=== PATIENT | male | born 1965 | race Caucasian/White ===

== ENCOUNTER 2016-12-02 20:29 | Emergency (ER) | payer OTHER ==
--- NOTE | 2016-12-02 20:26 | EDPHY ---
H & P HPI/ROS: CHIEF COMPLAINT: Full trauma activation, two-story fall. HISTORY OF PRESENT ILLNESS: The patient is a 52-year-old male who presents via EMS after a two-story fall earlier today. Per EMS he lost consciousness for an unknown amount of time. He was found 2-3 hours after falling. He has significant pain in his pelvis and left hip. Paramedics noted crepitus and diminished breath sounds on the left hemithorax. Initial blood pressure in the field was 60 systolic.He is on 15L oxygen on arrival. He is alert and oriented x4. He takes a daily aspirin but is not otherwise anticoagulated. No fever, chills, palpitations, vomiting, diarrhea, urinary complaints, lightheadedness. EMS administered 1.5L IV saline en route; following fluids bp was 80/60. REVIEW OF SYSTEMS: See HPI. Patient reports feeling otherwise well prior to the event. Last meal was several hours ago. PAST MEDICAL HISTORY: ADHD. SOCIAL HISTORY: Nonsmoker, no alcohol use. VITAL SIGNS: Reviewed by me; see NN. GENERAL: Well-developed, well-nourished, complaining of severe chest pain and hip pain. Prefers to sit upright. Reports significant pain in his pelvis when lying flat. HEENT: Abrasion to left zygoma and left ear. PERRL, EOMI, no nystagmus. Oropharynx: No trauma, normal occlusion. Neck: Nontender to palpation, no pain with range of motion, no adenopathy. C-collar in place. CHEST: Subcutaneous emphysema across left hemithorax. Swelling is visible numb the left chest wall. Tenderness to palpitation. Diminished breath sounds. Crackles to left chest, subcutaneous air, swelling to left chest. LUNGS: Diminished breath sounds on left. CARDIAC: Regular tachycardia, no rubs, murmurs or gallops. ABDOMEN: Soft, no significant tenderness. BACK: No CVA tenderness, no spinal tenderness. Abrasions to left flank. EXTREMITIES: Left hip pain with movement. Severe pain with movement of legs. Pelvis stable to pressure. Upper and lower extremities largely atraumatic. PULSES: 2+ and equal throughout. NEURO: Alert and oriented x3, cranial nerves are intact throughout, normal motor , normal sensation. SKIN: Warm and dry, no rash. Portions of this note were transcribed by a medical supply technician. I personally performed a history, physical exam, medical decision making, and confirmed accuracy of information the transcribed note. Source: Patient, EMS Exam Limitations: No limitations Constitutional: Initial Vital Signs Temperature (C) 35.7 C L 12/02/16 21:50 Heart Rate 118 H 12/02/16 21:50 Respiratory Rate 16 12/02/16 21:50 Blood Pressure 113/74 12/02/16 21:50 O2 Sat (%) 99 12/02/16 21:50 O2 Delivery Mode Non-Rebreather Mask O2 (L/minute) 15 Allergies/Adverse Reactions: No Known Allergies Allergy (Unverified 02/13/14 11:16) Home Medications: Medication Instructions Recorded Glucosamine 12/02/16 Medical Decision Making - Diagnostics Imaging Results: Imaging Impressions Chest X-Ray 12/02/16 20:36 Impression: Multiple displaced left rib fractures, pneumothorax, subcutaneous emphysema. CT evaluation is pending. Head CT 12/02/16 20:39 Impression: Negative noncontrast CT of the head, with no intracranial posttraumatic sequela identified. CT Cervical Spine, Without Contrast History: Trauma. Technique: Multislice helical CT through the cervical spine, without contrast, from the skull base to T1. Soft tissue and bone evaluation is performed. Sagittal and coronal reconstructions are obtained and reviewed. Dose reduction techniques were utilized. Findings: Cervical alignment is anatomic. No fracture or dislocation is identified. The relationship between skull base and C1 is normal. The C1-C2 articulation is normal. The odontoid process is normal. Disk degenerative changes are noted at C4-C5 and at C5-C6. The cervical thoracic junction is normal. Soft tissue window evaluation does not show evidence of epidural or prevertebral hematoma. There is extensive soft tissue air in the prevertebral space and in the left neck more than right and this is related to multiple left rib fractures. Impression: 1. Negative for fracture. 2. Extensive soft tissue air. 3. See above report for additional findings. Results called and discussed with Chelo Escalera M.D., on December 02, 2016 [address]. Cervical Spine CT 12/02/16 20:40 Impression: Negative noncontrast CT of the head, with no intracranial posttraumatic sequela identified. CT Cervical Spine, Without Contrast History: Trauma. Technique: Multislice helical CT through the cervical spine, without contrast, from the skull base to T1. Soft tissue and bone evaluation is performed. Sagittal and coronal reconstructions are obtained and reviewed. Dose reduction techniques were utilized. Findings: Cervical alignment is anatomic. No fracture or dislocation is identified. The relationship between skull base and C1 is normal. The C1-C2 articulation is normal. The odontoid process is normal. Disk degenerative changes are noted at C4-C5 and at C5-C6. The cervical thoracic junction is normal. Soft tissue window evaluation does not show evidence of epidural or prevertebral hematoma. There is extensive soft tissue air in the prevertebral space and in the left neck more than right and this is related to multiple left rib fractures. Impression: 1. Negative for fracture. 2. Extensive soft tissue air. 3. See above report for additional findings. Results called and discussed with Chelo Escalera M.D., on December 02, [address] Thoracic Spine CT 12/02/16 20:40 Impression: 1. Multiple left rib fractures, with associated pneumothorax, extensive subcutaneous emphysema, and possible pulmonary contusion. 2. See above report for additional findings. CT Thoracic Spine, Without Contrast Reason for examination: Trauma. Technique: A thinly collimated spiral acquisition was performed through the thoracic spine at 1.25-mm thickness. Sagittal and coronal reformations are performed and the examination is reviewed by the radiologist on the workstation at multiple window/level settings. Dose reduction techniques were utilized. Findings: The bone alignment is normal. An acute fracture is not seen. The paravertebral soft tissues are normal. Mild thoracic spinal degenerative changes are seen. Impression: Negative for fracture. Results called and discussed with Chelo Escalera M.D., on December 02, 2016 at 2134. E:JUMANA/kristel Lumbar Spine CT 12/02/16 20:41 Impression: 1. Grade 2 splenic laceration. 2. Complex displaced left-sided pelvic fractures, as detailed above. 3. Associated hematoma with the fractures results in mass effect, with displacement of the bladder towards the right. No definite bladder injury is identified. CT Lumbar Spine History: Trauma Technique: A spiral acquisition was performed through the lumbar spine from T12 to S1. Soft tissue and bone window evaluation is performed. Sagittal and coronal reconstructions are obtained utilizing soft tissue and bone window computer analysis modes. Dose reduction techniques were utilized. Findings: Vertebral body heights are well maintained. There is no acute fracture. The paravertebral soft tissues are negative for hemorrhage. Impression: Lumbar spine negative for acute fracture. Results called and discussed with Chelo Escalera M.D., on December 02, 2016 at 2202. E:PK/am Chest CT 12/02/16 20:42 Impression: 1. Multiple left rib fractures, with associated pneumothorax, extensive subcutaneous emphysema, and possible pulmonary contusion. 2. See above report for additional findings. CT Thoracic Spine, Without Contrast Reason for examination: Trauma. Technique: A thinly collimated spiral acquisition was performed through the thoracic spine at 1.25-mm thickness. Sagittal and coronal reformations are performed and the examination is reviewed by the radiologist on the workstation at multiple window/level settings. Dose reduction techniques were utilized. Findings: The bone alignment is normal. An acute fracture is not seen. The paravertebral soft tissues are normal. Mild thoracic spinal degenerative changes are seen. Impression: Negative for fracture. Results called and discussed with Chelo Escalera M.D., on December 02, 2016 at 2134. E:PK/taurus Abdomen CT 12/02/16 20:43 Impression: 1. Grade 2 splenic laceration. 2. Complex displaced left-sided pelvic fractures, as detailed above. 3. Associated hematoma with the fractures results in mass effect, with displacement of the bladder towards the right. No definite bladder injury is identified. CT Lumbar Spine History: Trauma Technique: A spiral acquisition was performed through the lumbar spine from T12 to S1. Soft tissue and bone window evaluation is performed. Sagittal and coronal reconstructions are obtained utilizing soft tissue and bone window computer analysis modes. Dose reduction techniques were utilized. Findings: Vertebral body heights are well maintained. There is no acute fracture. The paravertebral soft tissues are negative for hemorrhage. Impression: Lumbar spine negative for acute fracture. Results called and discussed with Chelo Escalera M.D., on December 02, 2016 at 2202. E:JUMANA/kristel Chest X-Ray 12/02/16 21:33 Impression: Partial reexpansion of the left lung following placement of a large bore thoracotomy tube. Imaging: Discussed imaging studies w/ scallop raker Radiologist, I viewed and interpreted images myself Procedures: Procedure: FAST Trauma ultrasound. Limited transthoracic ultrasound was performed and interpreted by myself for the indication of: chest and pelvic trauma utilizing the thoracoabdominal emergency ultrasound protocol. The pericardium was unable to be visualized from a sub xiphoid view secondary to patient guarding and positioning Limited abdominal ultrasound for blunt trauma. Right upper quadrant visualized, no fluid in Morison's pouch. Left upper quadrant visualized, no fluid in the splenorenal abscess. Images were saved to the ultrasound database. The procedure was performed by myself. ED Course/Re-evaluation: 52-year-old male presents via EMS as a full trauma activation after a two-story fall. I met EMS on arrival and obtained a report from the eligibility specialist. Dr. Guerrero , trauma surgery, at bedside along with respiratory therapy and blood bank. Blood pressure 80/60 manual on arrival. 2033: T-pod placed. Portable chest x-ray ordered. I performed a bedside trauma ultrasound (see procedure note for details). 75mcg IV Fentanyl and 4mg IV Zofran administered for pain and nausea. 2036: Portable chest x-ray taken. Patient transferred to CT for head, neck, abdomen, and pelvis imaging. X-ray of the chest was obtained. I viewed the images myself on the PACS system. My interpretation of the images is: left-sided pneumothorax, small left -sided hemothorax, pneumomediastinum, pulmonary contusions, multiple left rib fractures. The radiologist interpretation is pending at this time. I discussed the x-ray findings with the patient. 2101: Reassessed patient. is now at bedside. Discussed early results of imaging studies. I reviewed the patient's laboratory studies. Hgb 8.7, Hct 24.9. One unit of blood ordered for mass transfusion protocol. 2105: Consulted with Dr. Reeder, orthopedics. He will view the patient's images on the PACS system. Dr. Guerrero is performing a chest tube thoracotomy. 2107: I consulted with Dr. Tran, radiology. He reports left acetabular fracture and comminuted left iliac fracture with mass effect on the bladder. 2119: Dr. Reeder is in the ER evaluating the patient's images. He recommends transfer to [facility] for operative intervention patient's complex pelvic fracture. 2124: I spoke with [facility] concerning transfer. Patient accepted by Dr. Sony Oliveira. Patient's course also was discussed with Dr. Andrea Miramontes, emergency department attending. Patient was transferred via helicopter to [facility]. Patient does have [place] [facility]. I spoke with [facility] case management to notify them of the patient's admission and transfer to [facility]. At the time of transfer, [facility] [place] [facility] was in the emergency department and on standby for an emergent transfer. I do not believe that the patient was stable to await ground transport, or other air support services given the fact that [facility] was currently in the emergency department and ready to transfer the patient to [facility]. 2 units of packed red blood cells were infusing at the time of transport as well as FFP. Differential Diagnosis: Differential diagnosis of this patient's traumatic mechanism was considered including but not limited to intracranial injury, long bone and pelvic bone fracture, spinal injury, intrathoracic injury, extremity injury, intra- abdominal injury, lacerations, abrasions, and contusions. Consult/Admit Bed Type: Transfer to [facility], Dr. Sony Oliveira Critical Care Time: Critical care time spent by Dr. Lali he exclusively with this patient was 35 minutes, exclusive of PA time and exclusive of procedures. The organ system at risk was pulmonary, orthopedic, with significant risk of hemorrhage and I gave IV fluids, blood, transported the patient emergently to level 1 trauma center for orthopedic management pelvic fracture with significant hemorrhage to prevent worsening of the patients condition. Critical care time included obtaining history, performing a physical exam, bedside monitoring of interventions, collecting and interpreting tests and discussion with consultants but not including time spent performing procedures. - Data Points Laboratory Results: Laboratory Results 12/02/16 20:40 12/02/16 20:40 12/02/16 12/02/16 12/02/16 21:23 21:23 21:11 WBC RBC Hgb POC Hgb 9.5 gm/dL L gm/dL (13.7-17.5) Hct POC Hct 28 % L % (40-51) MCV MCH MCHC RDW Plt Count MPV Neut % (Auto) Lymph % (Auto) [place] % (Auto) Eos % (Auto) Baso % (Auto) Nucleat RBC Rel Count Absolute Neuts (auto) Absolute Lymphs (auto) Absolute Monos (auto) Absolute Eos (auto) Absolute Basos (auto) Absolute Nucleated RBC Immature Gran % Immature Gran # PT INR APTT TEG Specimen Type Citrated Kaolin TEG Sample Type Other TEG R Time 4.2 minutes L minutes (5-10) TEG K Time 1.3 minutes minutes (1-3) TEG Alpha Angle 71.8 degrees degrees (53-72) TEG Max Amplitude 62.8 mm mm (50-70) Puncture Site Pending pCO2 Pending pO2 Pending Total CO2 Pending ABG pH Pending ABG HCO3 Pending ABG O2 Saturation Pending ABG Base Excess Pending POC Sodium 140 mEq/L mEq/L (134-144) Sodium POC Potassium 3.6 mEq/L mEq/L (3.3-5.0) Potassium POC Chloride 106 mEq/L mEq/L (97-110) Chloride Carbon Dioxide Anion Gap POC BUN 24 mg/dL H mg/dL (7-23) BUN Creatinine POC Creatinine 1.3 mg/dL mg/dL (0.7-1.3) Estimated GFR Glucose POC Glucose 163 mg/dL H mg/dL (70-100) Calcium Phosphorus Magnesium Total Bilirubin AST Lactate Dehydrogenase Creatine Kinase CK-MB (CK-2) Fraction CK-MB (CK-2) % Creatine Kinase Interp Albumin Ethyl Alcohol Patient ABO/Rh Antibody Screen Crossmatch IS Only 12/02/16 12/02/16 12/02/16 20:40 20:40 20:40 WBC RBC Hgb POC Hgb Hct POC Hct MCV MCH MCHC RDW Plt Count MPV Neut % (Auto) Lymph % (Auto) [place] % (Auto) Eos % (Auto) Baso % (Auto) Nucleat RBC Rel Count Absolute Neuts (auto) Absolute Lymphs (auto) Absolute Monos (auto) Absolute Eos (auto) Absolute Basos (auto) Absolute Nucleated RBC Immature Gran % Immature Gran # PT 17.2 SEC H SEC (12.0-15.0) INR 1.41 H (0.83-1.16) APTT 28.1 SEC SEC (23.0-38.0) TEG Specimen Type TEG Sample Type TEG R Time TEG K Time TEG Alpha Angle TEG Max Amplitude Puncture Site pCO2 pO2 Total CO2 ABG pH ABG HCO3 ABG O2 Saturation ABG Base Excess POC Sodium Sodium 138 mEq/L mEq/L (134-144) POC Potassium Potassium 3.9 mEq/L mEq/L (3.5-5.2) POC Chloride Chloride 112 mEq/L H mEq/L (97-110) Carbon Dioxide 17 mEq/l L mEq/l (22-31) Anion Gap 9 mEq/L mEq/L (8-16) POC BUN BUN 23 mg/dL mg/dL (7-23) Creatinine 1.3 mg/dL mg/dL (0.7-1.3) POC Creatinine Estimated GFR 58 Glucose 229 mg/dL H mg/dL (70-100) POC Glucose Calcium 7.6 mg/dL L mg/dL (8.5-10.4) Phosphorus 5.1 mg/dL H mg/dL (2.5-4.5) Magnesium 1.9 mg/dL mg/dL (1.6-2.3) Total Bilirubin 0.9 mg/dL mg/dL (0.1-1.4) AST 85 IU/L H IU/L (17-59) Lactate Dehydrogenase 1016 IU/L H IU/L (313-618) Creatine Kinase 1544 IU/L H IU/L (0-224) CK-MB (CK-2) Fraction 26.60 ng/mL H ng/mL (0-3.19) CK-MB (CK-2) % 1.7 % % (0.0-4.0) Creatine Kinase Interp NEGATIVE (NEGATIVE) Albumin 2.9 g/dL L g/dL (3.5-5.0) Ethyl Alcohol < 10 mg/dL mg/dL (0-10) Patient ABO/Rh O POSITIVE Antibody Screen NEGATIVE Crossmatch IS Only See Detail 12/02/16 12/02/16 20:40 20:33 WBC 13.56 10^3/uL H 10^3/uL (3.80-9.50) RBC 2.52 10^6/uL L 10^6/uL (4.40-6.38) Hgb 8.7 g/dL L g/dL (13.7-17.5) POC Hgb 10.5 gm/dL L gm/dL (13.7-17.5) Hct 24.9 % L % (40.0-51.0) POC Hct 31 % L % (40-51) MCV 98.8 fL fL (81.5-99.8) MCH 34.5 pg H pg (27.9-34.1) MCHC 34.9 g/dL g/dL (32.4-36.7) RDW 12.4 % % (11.5-15.2) Plt Count 160 10^3/uL 10^3/uL (150-400) MPV 10.3 fL fL (8.7-11.7) Neut % (Auto) 81.1 % H % (39.3-74.2) Lymph % (Auto) 8.6 % L % (15.0-45.0) [place] % (Auto) 8.6 % % (4.5-13.0) Eos % (Auto) 0.4 % L % (0.6-7.6) Baso % (Auto) 0.1 % L % (0.3-1.7) Nucleat RBC Rel Count 0.0 % % (0.0-0.2) Absolute Neuts (auto) 11.00 10^3/uL H 10^3/uL (1.70-6.50) Absolute Lymphs (auto) 1.16 10^3/uL 10^3/uL (1.00-3.00) Absolute Monos (auto) 1.17 10^3/uL H 10^3/uL (0.30-0.80) Absolute Eos (auto) 0.06 10^3/uL 10^3/uL (0.03-0.40) Absolute Basos (auto) 0.01 10^3/uL L 10^3/uL (0.02-0.10) Absolute Nucleated RBC 0.00 10^3/uL 10^3/uL (0-0.01) Immature Gran % 1.2 % H % (0.0-1.1) Immature Gran # 0.16 10^3/uL H 10^3/uL (0.00-0.10) PT INR APTT TEG Specimen Type TEG Sample Type TEG R Time TEG K Time TEG Alpha Angle TEG Max Amplitude Puncture Site pCO2 pO2 Total CO2 ABG pH ABG HCO3 ABG O2 Saturation ABG Base Excess POC Sodium 140 mEq/L mEq/L (134-144) Sodium POC Potassium 3.6 mEq/L mEq/L (3.3-5.0) Potassium POC Chloride 107 mEq/L mEq/L (97-110) Chloride Carbon Dioxide Anion Gap POC BUN 25 mg/dL H mg/dL (7-23) BUN Creatinine POC Creatinine 1.4 mg/dL H mg/dL (0.7-1.3) Estimated GFR Glucose POC Glucose 238 mg/dL H mg/dL (70-100) Calcium Phosphorus Magnesium Total Bilirubin AST Lactate Dehydrogenase Creatine Kinase CK-MB (CK-2) Fraction CK-MB (CK-2) % Creatine Kinase Interp Albumin Ethyl Alcohol Patient ABO/Rh Antibody Screen Crossmatch IS Only Medications Given: Discontinued Medications Fentanyl (Sublimaze) 100 mcg IVP EDNOW ONE Stop: 12/02/16 21:59 Last Admin: 12/02/16 20:30 Dose: 100 mcg Fentanyl (Sublimaze) 100 mcg IVP EDNOW ONE Stop: 12/02/16 22:00 Last Admin: 12/02/16 20:45 Dose: 100 mcg Hydromorphone HCl (Dilaudid) 1 mg IVP EDNOW ONE Stop: 12/02/16 22:01 Last Admin: 12/02/16 21:00 Dose: 1 mg Hydromorphone HCl (Dilaudid) 1 mg IVP EDNOW ONE Stop: 12/02/16 22:01 Last Admin: 12/02/16 21:20 Dose: 1 mg Cefazolin Sodium/Dextrose (Ancef 2 Gm (Premix)) 100 mls @ 200 mls/hr IV EDNOW ONE PRN Reason: Protocol Stop: 12/02/16 22:02 Last Admin: 12/02/16 21:45 Dose: 100 mls Sodium Chloride (Ns) 500 mls @ 1,000 mls/hr IV EDNOW ONE PRN Reason: Protocol Stop: 12/02/16 22:29 Last Admin: 12/02/16 20:35 Dose: 500 mls Lidocaine (Uroject Lidocaine 2% Jelly) 20 ml UR EDNOW ONE Stop: 12/02/16 23:02 Last Admin: 12/02/16 21:20 Dose: 20 ml Ondansetron HCl (Zofran) 4 mg IVP EDNOW ONE Stop: 12/02/16 22:03 Last Admin: 12/02/16 20:30 Dose: 4 mg Pantoprazole Sodium (Protonix) 40 mg IVP EDNOW ONE Stop: 12/02/16 22:00 Last Admin: 12/02/16 21:00 Dose: 40 mg Point of Care Test Results: 12/02/16 12/02/16 20:33 21:23 POC Sodium 140 140 POC Potassium 3.6 3.6 POC Chloride 107 106 POC BUN 25 H 24 H POC Creatinine 1.4 H 1.3 POC Glucose 238 H 163 H Departure - Departure Disposition: Acute Care [facility] Clinical Impression: Pneumomediastinum, Hemorrhagic shock Multiple rib fractures Qualifiers: Encounter type: initial encounter Fracture type: closed Laterality: left Qualified Code(s): S22.42XA - Multiple fractures of ribs, left side, initial encounter for closed fracture Pneumothorax Qualifiers: Pneumothorax type: traumatic Encounter type: initial encounter Qualified Code(s ): S27.0XXA - Traumatic pneumothorax, initial encounter Pelvic fracture Qualifiers: Encounter type: initial encounter Pelvic bone location: multiple parts Fracture type: closed Fracture alignment: without disruption of pelvic ring Qualified Code(s): S32.82XA - Multiple fractures of pelvis without disruption of pelvic ring, initial encounter for closed fracture Fracture of head of left femur Qualifiers: Encounter type: initial encounter Fracture type: closed Qualified Code(s): S72.052A - Unspecified fracture of head of left femur, initial encounter for closed fracture Condition: Serious Referrals: Patient,NotPresent [Unknown] - As per Instructions Report Scribed for: Chelo Escalera Report Scribed by: Oliverio Gonzalez Date of Report: 12/02/16 Time of Report: 20:29
[2016-12-02] MEDS ORDERED: HYDROmorphONE/DILAUDID 1 MG/ML SYR ONE ×2 (20:42→21:11)
[2016-12-02] MEDS ORDERED: PANTOPRAZOLE SODIUM 40 MG VIAL ONE (20:43)
[2016-12-02 20:57] LABS: % IMMATURE GRANULYOCYTES 1.2 % (0.0-1.1); ABSOLUTE IMMATURE GRANULOCYTES 0.16 10^3/uL (0.00-0.10); ADD DIFF? NO; ADD MORPH? NO; ADD SCAN? NO; ATYPICAL LYMPHOCYTE FLAG 0 (0-99); FRAGMENT RBC FLAG 0 (0-99); HEMATOCRIT 24.9 % (40.0-51.0); HEMOGLOBIN 8.7 g/dL (13.7-17.5); LEFT SHIFT FLG 40 (0-99); LIPEMIA HEMOLYSIS FLAG 90 (0-99); MEAN CELL HEMOGLOBIN 34.5 pg (27.9-34.1); MEAN CELL HEMOGLOBIN CONCENTR. 34.9 g/dL (32.4-36.7); MEAN CELL VOLUME 98.8 fL (81.5-99.8); MEAN PLATELET VOLUME 10.3 fL (8.7-11.7); PLATELET CLUMPS FLAG 0 (0-99); PLATELET COUNT 160 10^3/uL (150-400); RED BLOOD CELL COUNT 2.52 10^6/uL (4.40-6.38); RED CELL DISTRIBUTION WIDTH 12.4 % (11.5-15.2)
[2016-12-02 21:00] LABS: ALBUMIN 2.9 g/dL (3.5-5.0); ANION GAP 9 mEq/L (8-16); ASPARTATE AMINOTRANSFERASE 85 IU/L (17-59); BILIRUBIN,TOTAL 0.9 mg/dL (0.1-1.4); CALCIUM 7.6 mg/dL (8.5-10.4); CARBON DIOXIDE 17 mEq/l (22-31); CHLORIDE 112 mEq/L (97-110); CREATININE 1.3 mg/dL (0.7-1.3); ETHANOL SERUM < 10 mg/dL (0-10); GLOMERULAR FILTRATION RATE 58; GLUCOSE 229 mg/dL (70-100); LACTATE DEHYDROGENASE 1016 IU/L (313-618); MAGNESIUM 1.9 mg/dL (1.6-2.3); POTASSIUM 3.9 mEq/L (3.5-5.2); SODIUM 138 mEq/L (134-144)
[2016-12-02 21:05] LABS: INR 1.41 (0.83-1.16); PROTIME(PATIENT) 17.2 SEC (12.0-15.0)
[2016-12-02 21:06] LABS: APTT 28.1 SEC (23.0-38.0)
[2016-12-02] MEDS ORDERED: LIDOCAINE 2% JELLY 20 ML (UROJECT) ONE (21:06)
[2016-12-02] MEDS ORDERED: IOPAMIDOL (ISOVUE 370) 100 ML BTL IV ONE (21:21)
[2016-12-02] MEDS ORDERED: ceFAZolin 1 GM VIAL IVP ONE (21:29)
[2016-12-02] MEDS ORDERED: CEFAZOLIN 2 GM/DEXTROSE/100 ML BAG IV ONE (21:31)
[2016-12-02] MEDS ORDERED: ceFAZolin 2 GM/DEXTROSE 100 ML IV ONE (21:33)
[2016-12-02] MEDS ORDERED: fentaNYL 100 MCG/2 ML INJ IVP ONE ×2 (21:58→21:59)
[2016-12-02] MEDS ORDERED: PANTOPRAZOLE SODIUM 40 MG VIAL IVP ONE (21:59)
[2016-12-02] MEDS ORDERED: HYDROmorphONE/DILAUDID 1 MG/ML SYR IVP ONE ×2 (22:00)
[2016-12-02] MEDS ORDERED: NS 500 ML IV ONE (22:00)
[2016-12-02] MEDS ORDERED: ONDANSETRON 4 MG/2 ML VIAL IVP ONE (22:02)
--- NOTE | 2016-12-02 22:13 | GCON ---
[f rep st] CONSULTATION ORTHOPEDICS CONSULTATION DATE OF CONSULTATION: 12/02/2016 REASON FOR CONSULTATION: Trauma activation [facility] ER with specific reason for o rthopedic consultation being a pelvic fracture. HISTORY OF PRESENT ILLNESS: The patient is a 51-year-old male who evidently fell approximately 2 st ories landing on the left hip and left chest. He was admitted with shortness of breath. No loss of consciousness. Radiographs and CT scan of his chest showed a hemopneumothorax. A chest tube was b eing placed in the trauma room. The patient was hemodynamically stable with a blood pressure of 110 /70 at time of my observation. He was alert, oriented and cooperative. PAST MEDICAL HISTORY: Not obtainable. IMAGING STUDIES: Radiographs were taken. CT scans of the abdomen, pelvis, spine, head and neck wer e reviewed. Orthopedic injuries include an acetabular fracture with total fragmentation of the medi al wall with extension into both anterior and posterior columns. Very unstable pattern noted. Ther e is also an impacted comminuted fracture of the inferior anterior portion of the femoral head. PHYSICAL EXAMINATION: ABDOMEN: Distended. MUSCULOSKELETAL: He is able to feel and move the lower extremities. A binder was in place. Pulses were 1+ dorsalis pedis and posterior tibialis. He was able to flex and extend the ankles and toes. ASSESSMENT: Orthopedic injuries include a left anterior-posterior column pelvic fracture with a com minuted medial wall of the acetabulum and a fracture of the anterior inferior femoral head. PLAN: The patient will be maintained in a binder. He is hemodynamically stable at time of transpor t. He is to be transferred to [facility]. Discussion was made with the trauma surgeons at [facility] to have a team available to accept him in transfer. He is transported by helicopter. /[id number]/MODL
[2016-12-02 22:19] LABS: CK-MB INTERPRETATION NEGATIVE (NEGATIVE)
--- NOTE | 2016-12-02 22:48 | GDS ---
[f rep st] TRAUMA CONSULTATION AND TRANSFER SUMMARY DATE OF TRANSFER: 12/02/2016 ADMITTING DIAGNOSIS: 1. Fall from height (2 stories). 2. Concussion with brief loss of consciousness. 3. Fractures of right ribs 3 through 6 and 8 with a hemopneumothorax. 4. Splenic contusion without bleed. 5. Left pelvis fracture with acetabular disruption anterior and posterior column injury and sacral ala fracture. HISTORY: Mr. Cottrell is a 51-year-old, white male who was standing on a roof when he fell. He was knocked out for an indeterminate amount of time. When he woke up, he was groggy and unclear as to where he was. He then slowly over the next 2 hours dragged himself up a hill to get someone's attention. EMS was THEN called. He was brought directly to [facility]. On admission, he is awake and alert. His airway is clear. He is complaining of discomfort in his chest and left pelvis. There is no obvious bleeding. Focused history reveals that he has an adverse reaction to Flonase, and it makes his nose itch. He does not smoke. He has attention deficit hyperactivity disorder and takes medication whose name he cannot recall. He also uses glucosamine. His last meal was at 5 p.m. Surgeries have included a right knee surgery and right shoulder surgery. On a rapid examination his skull was normocephalic and atraumatic. He was awake , alert and oriented to person, place, and time. His GCS was 15. A C-collar was in place. It was temporarily removed and his posterior neck was palpated, it was nontender. The C collar was returned to position. There was no Gore sign, raccoon eyes, otorrhea. He has normal dental occlusion. His right upper extremity is unremarkable and ranged appropriately. The clavicle is unremarkable. Left upper extremity is ranged completely and unremarkable. His chest reveals subcutaneous emphysema on the left and a gentle crunch is identified with lateral pressure. Cardiac exam shows S1, S2 to be normal. His abdomen is distended but soft. He had a sheet tied around his waist. The sheet is removed and he is disrobed. He complains of severe pain in his left pelvis. Lower extremities are unremarkable. The T pod is positioned. A focused ultrasound for trauma was performed, which is negative. He was taken directly to CT scan. He has received 1.5 L of fluid in the field. When 500s more cc has been administered he is given his 1st unit of blood. His blood pressure on admission was 80/60 at 1:28. He responded rapidly to fluid administration. Medications he received included fentanyl 200 mcg, Dilaudid 2 mg, Zofran 4 mg, Protonix 40 and Ancef 2 g. He was stable in CAT scan. The CT scan of his head and neck was read as negative. The CT scan of his chest showed the above-mentioned rib fractures and the pneumothorax was bigger than expected from the AP chest. The chest is otherwise unremarkable. Does have some minor pulmonary contusions. His abdomen shows a splenic contusion. It is not bleeding. He has a severe disruption of his left pelvis. It is as if his femoral head was pushed through the acetabulum disrupting the lateral pelvis. There are multiple fractures of the iliac crest. There was a portion of the left sacral ala, which is fractured. The acetabulum was fractured. The articular surface of the hip has fractures to it. It pushed through the acetabulum. There is inferior pubic ramus fracture and an anterior column disruption. I had asked Dr. Reeder to come evaluate the patient with me. He felt that this was beyond the capabilities at this institution. Arrangements were made for the patient be transferred to [facility]. On return to the emergency department, his Guevara catheter was placed. A 32 straight chest tube was placed. On initial placement it is kinked. The chest tube was carefully sterilely repositioned. On followup film is in good position. 40 cc of fluid comes out of the chest. He is stable for transport. As I was tied up with a chest tube, the case was discussed by Dr. Chelo Escalera and the attending surgeon at [facility]. Arrangements were made for air transport. A second unit of blood was sent with the patient. A tag had been sent but has not returned yet. Laboratories are not yet available. From admission to transfer his time at [facility] was 1 hour and 20 minutes. /[id number]/MODL MTDD
[2016-12-02] MEDS ORDERED: LIDOCAINE 2% JELLY 20 ML (UROJECT) UR ONE (23:01)
[2016-12-02 23:04] VITALS: BP 113/74; PULSE 118; RESP 16; TEMP 96.3; O2SAT 99
[2016-12-02 23:07] LABS: ALPHA ANGLE 71.8 degrees (53-72); K TIME 1.3 minutes (1-3); MAXIMUM AMPLITUDE 62.8 mm (50-70); R TIME 4.2 minutes (5-10); TEG CONTAINER Citrated Kaolin
== END 2016-12-02 21:50 | disposition short-term general hospital (02) ==
LOC: EDUNIT# → UNDOADMIN 21:01
DX: S22.42XA Multiple fractures of ribs, left side, initial encounter for closed fracture (principal); J98.2 Interstitial emphysema; T79.4XXA Traumatic shock, initial encounter; S27.0XXA Traumatic pneumothorax, initial encounter; S32.82XA Multiple fractures of pelvis without disruption of pelvic ring, initial encounter for closed fracture; S72.052A Unspecified fracture of head of left femur, initial encounter for closed fracture; E86.9 Volume depletion, unspecified; W13.8XXA Fall from, out of or through other building or structure, initial encounter; Y99.8 Other external cause status
CPT/HCPCS: 36430; 70450; 71010; 71260; 72125; 72129; 72132; 74177; 96374; 96375; 99291; P9016; 82947-QW; G0480; J0690; J1170; J3010; Q9967